=== PATIENT | male | born 1965 | race Caucasian/White ===

== ENCOUNTER 2017-04-12 01:08 | Emergency (ER) | payer SELFPAY ==
[~2017-04-12] VITALS: Ht 172.7 cm; Wt 61.4 kg
[~2017-04-12 01:08] MED LIST: MUSCLE RELAXER PO
[2017-04-12 01:18] VITALS: BP 147/90; PULSE 114; RESP 32; TEMP 97.9; O2SAT 95
[2017-04-12] MEDS ORDERED: methylPREDNISolone SOD SUCC 125 MG/2 ML VIAL IV PUSH ONE (01:45)
[2017-04-12] MEDS ORDERED: SODIUM CHLORIDE 0.9% FLUSH 10 ML FLUSH IVF PRN (01:45)
[2017-04-12] MEDS: RESP: ALBUTEROL 2.5 MG/IPRATROPIUM 0.5 MG NEB (SCH) INH ×3 (01:48→02:12)
[2017-04-12 01:50] VITALS: BP 118/65; PULSE 111; RESP 25; O2SAT 93
[2017-04-12 02:17] LABS: BLOOD GAS BASE EXCESS -0.9 mmol/L (-2-2); BLOOD GAS HCO3 23 mmol/L (22-26); BLOOD GAS METHEMOGLOBIN 1.1 % (0-2); BLOOD GAS O2 HGB SATURATION 80 % (90-100); BLOOD GAS PCO2 35 mmHG (38-42); BLOOD GAS PO2 62 mmHG (61-120); BLOOD GAS TOTAL HGB 16.1 G/DL (12.0-16.0); TEMP CORR TO 98.6
[2017-04-12 02:18] LABS: CRITICAL VALUE YES; DRAW SITE RT RADIAL; FIO2 21 %; NUMBER OF ARTERIAL PUNCTURES 1; OXYGEN DEVICE ROOM AIR; STAT YES; ULNAR PULSE PRESENT
[2017-04-12 02:21] LABS: AUTOMATED NEUTROPHIL # 3.9 TH/MM3 (1.8-7.7); BASOPHIL # 0.1 TH/MM3 (0-0.2); BASOPHIL % 0.8 % (0.0-2.0); EOSINOPHIL # 0.1 TH/MM3 (0-0.4); EOSINOPHIL % 1.1 % (0.0-4.0); HEMATOCRIT 50.1 % (39.0-51.0); HEMO FLAGS DIFF FINAL; LYMPH % 35.8 % (9.0-44.0); LYMPHOCYTE # 2.8 TH/MM3 (1.0-4.8); MEAN CELL VOLUME 100.5 FL (80.0-100.0); MEAN CORPUSCULAR HEMOGLOBIN 33.8 PG (27.0-34.0); MEAN CORPUSCULAR HGB CONC 33.7 % (32.0-36.0); MONO % 13.1 % (0.0-8.0); NEUT % 49.2 % (16.0-70.0); PLATELET COUNT 189 TH/MM3 (150-450); RED BLOOD COUNT 4.99 MIL/MM3 (4.50-5.90); RED CELL DISTRIBUTION WIDTH 14.6 % (11.6-17.2); WHITE BLOOD COUNT 7.9 TH/MM3 (4.0-11.0)
[2017-04-12 02:30] LABS: POTASSIUM 3.1 MEQ/L (3.5-5.1)
[2017-04-12 02:31] VITALS: BP 111/69; PULSE 109; RESP 32; O2SAT 93
[2017-04-12 02:33] LABS: BICARBONATE 22.7 MEQ/L (21.0-32.0)
--- NOTE | 2017-04-12 03:10 | PD ---
HPI Chief Complaint: Respiratory Symptoms Time Seen by Provider: 01:43 Travel History International Travel<30 days: No Contact w/Intl Traveler<30days: No Traveled to known affect area: No History of Present Illness HPI The patient is a 51-year-old male that has been short of breath for one week. He smokes one pack a day. He may also smoke cocaine. He denies any chest pain. He denies any fever. PFSH Past Medical History Cancer: No Cardiovascular Problems: No Endocrine: No Genitourinary: No Hypertension: Yes Immune Disorder: No Musculoskeletal: Yes Neurologic: No Psychiatric: No Reproductive: No Respiratory: No Immunizations Current: No Pneumonia: Yes (BRONCHIAL PNEUMONIA REQUIRING HOSPITALIZATION) Influenza Vaccination: Yes Past Surgical History Pacemaker: No Other Surgery: Yes (BRONCHOSCOPY: 08/03/13) Social History Alcohol Use: Yes (occasionally) Tobacco Use: Yes (1/2 ppd) Substance Use: Yes (WEED OCCASIONALLY) Allergies-Medications (Allergen,Severity, Reaction): Coded Allergies: No Known Allergies (Unverified Adverse Reaction, Unknown, 04/12/17) Reported Meds & Prescriptions Reported Meds & Active Scripts Active No Active Prescriptions or Reported Medications Review of Systems Except as stated in HPI: all other systems reviewed are Neg Physical Exam Narrative GENERAL: The patient is alert, oriented 3 and slight respiratory distress. His respiratory rate is 32 and oximetry 95% on room air with blood pressure 147/ 90 and heart rate 114 when he came in. SKIN: Focused skin assessment warm/dry. HEAD: Atraumatic. Normocephalic. EYES: Pupils equal and round. No scleral icterus. No injection or drainage. ENT: No nasal bleeding or discharge. Mucous membranes pink and moist. NECK: Trachea midline. No JVD. CARDIOVASCULAR: Regular rate and rhythm. No murmur appreciated. RESPIRATORY: No accessory muscle use. Breath sounds are diminished bilaterally. Breath sounds equal bilaterally. A few scattered rhonchi is present, particularly on the left. GASTROINTESTINAL: Abdomen soft, non-tender, nondistended. Hepatic and splenic margins not palpable. MUSCULOSKELETAL: No obvious deformities. No clubbing. No cyanosis. No edema. NEUROLOGICAL: Awake and alert. No obvious cranial nerve deficits. Motor grossly within normal limits. Normal speech. PSYCHIATRIC: Appropriate mood and affect; insight and judgment normal. Data Data Last Documented VS Vital Signs Date Time Temp Pulse Resp B/P (MAP) Pulse Ox O2 Delivery O2 Flow Rate FiO2 04/12/17 02:31 109 32 111/69 (83) 93 Nasal Cannula 4.00 04/12/17 01:18 97.9 Orders Orders Complete Blood Count With Diff (04/12/17 01:43) Basic Metabolic Panel (Bmp) (04/12/17 01:43) Arterial Blood Gas (Abg) (04/12/17 01:43) Iv Access Insert/Monitor (04/12/17 01:43) Ecg Monitoring (04/12/17 01:43) Oximetry (04/12/17 01:43) Oxygen Administration (04/12/17 01:43) Sodium Chloride 0.9% Flush (Ns Flush) (04/12/17 01:45) Methylprednisolone So Succ Inj (Solumedr (04/12/17 01:45) Albuterol-Ipratropium Neb (Duoneb Neb) (04/12/17 01:45) Chest, Pa & Lat (04/12/17 03:06) Urinalysis - C+S If Indicated (04/12/17 03:06) Drug Screen, Random Urine (04/12/17 03:06) Potassium Chloride (Kcl) (04/12/17 04:15) Ed Discharge Order (04/12/17 04:25) Labs Laboratory Tests Test 04/12/17 01:20 04/12/17 01:56 04/12/17 04:01 White Blood Count 7.9 TH/MM3 Red Blood Count 4.99 MIL/MM3 Hemoglobin 16.9 GM/DL Hematocrit 50.1 % Mean Corpuscular Volume 100.5 FL Mean Corpuscular Hemoglobin 33.8 PG Mean Corpuscular Hemoglobin Concent 33.7 % Red Cell Distribution Width 14.6 % Platelet Count 189 TH/MM3 Mean Platelet Volume 9.7 FL Neutrophils (%) (Auto) 49.2 % Lymphocytes (%) (Auto) 35.8 % Monocytes (%) (Auto) 13.1 % Eosinophils (%) (Auto) 1.1 % Basophils (%) (Auto) 0.8 % Neutrophils # (Auto) 3.9 TH/MM3 Lymphocytes # (Auto) 2.8 TH/MM3 Monocytes # (Auto) 1.0 TH/MM3 Eosinophils # (Auto) 0.1 TH/MM3 Basophils # (Auto) 0.1 TH/MM3 CBC Comment DIFF FINAL Differential Comment Blood Urea Nitrogen 3 MG/DL Creatinine 0.68 MG/DL Random Glucose 113 MG/DL Calcium Level 8.4 MG/DL Sodium Level 139 MEQ/L Potassium Level 3.1 MEQ/L Chloride Level 107 MEQ/L Carbon Dioxide Level 22.7 MEQ/L Anion Gap 9 MEQ/L Estimat Glomerular Filtration Rate 124 ML/MIN Blood Gas Puncture Site RT RADIAL Blood Gas Patient Temperature 98.6 Blood Gas HCO3 23 mmol/L Blood Gas Base Excess -0.9 mmol/L Blood Gas Oxygen Saturation 80 % Arterial Blood pH 7.43 Arterial Blood Partial Pressure CO2 35 mmHG Arterial Blood Partial Pressure O2 62 mmHG Arterial Blood Oxygen Content 18.0 Vol % Arterial Blood Carboxyhemoglobin 13.0 % Arterial Blood Methemoglobin 1.1 % Blood Gas Hemoglobin 16.1 G/DL Oxygen Delivery Device ROOM AIR Blood Gas Inspired Oxygen 21 % Urine Color YELLOW Urine Turbidity CLEAR Urine pH 6.0 Urine Specific [place] 1.020 Urine Protein TRACE mg/dL Urine Glucose (UA) NEG mg/dL Urine Ketones TRACE mg/dL Urine Occult Blood NEG Urine Nitrite NEG Urine Bilirubin NEG Urine Leukocyte Esterase NEG Urine Squamous Epithelial Cells 0-5 /hpf Urine Calcium Oxalate Crystals MOD /hpf Urine Mucus MOD /lpf Microscopic Urinalysis Comment CULT NOT INDICATED Urine Barbiturates Screen NEG Urine Amphetamines Screen NEG Urine Benzodiazepines Screen NEG Urine Cocaine Screen POS Urine Cannabinoids Screen POS MDM Medical Decision Making Medical Screen Exam Complete: Yes Emergency Medical Condition: Yes Medical Record Reviewed: Yes Interpretation(s) The blood gases on room air show pH 7.43, CO2 35, PO2 of 62 with O2 sat of 80 and carboxyhemoglobin level of 13. The EKG shows sinus tachycardia with a rate of [address] elevation or depression. The basic metabolic profile shows potassium 3.1 and calcium 8.4 but is otherwise unremarkable. The chest x- ray shows interstitial prominence bilaterally which is likely related to emphysema. No acute findings noted. The urine shows trace ketones, moderate calcium oxalate crystals and culture is not indicated. The CBC shows an MCV of 100.5 but is otherwise unremarkable. The basic metabolic profile shows potassium 3.1 and calcium 8.4 but is otherwise unremarkable. The toxicology is positive for cocaine and cannabinoids. Differential Diagnosis COPD with acute exacerbation, emphysema, tobacco abuse, hypoxemia, pneumonia, bronchitis, recreational drug abuse Narrative Course The patient appears to have emphysema. He is unlikely to quit smoking. He will be given an albuterol HFA, he does not have a nebulizer machine at home. His extremely high carboxyhemoglobin level may be related to both smoking and marijuana and cocaine use. Diagnosis Primary Impression: Emphysema Additional Impressions: Cocaine abuse Marijuana abuse Tobacco abuse Med/Other Pt SpecificInfo: Prescription(s) given Scripts Albuterol 8.5 GM Inh (Proair Hfa 8.5 GM Inh) 90 Mcg/Act Aer 2 PUFF INH Q4-6H Y for SHORTNESS OF BREATH, #1 INHALER 0 Refills 108 mcg/actuation Prov: Sushant Berg MD 04/12/17 Sushant Berg MD Apr 12, 2017 03:10
[2017-04-12 03:30] VITALS: BP 123/74; PULSE 102; RESP 20; O2SAT 97
[2017-04-12 04:13] LABS: BLOOD, URINE NEG (NEG); GLUCOSE,URINE NEG (NEG); KETONE, URINE TRACE mg/dL (NEG); NITRITE,URINE NEG (NEG)
[2017-04-12] MEDS ORDERED: POTASSIUM CHLORIDE 20 MEQ CONTROLLED RELEASE TAB PO ONE (04:15)
--- NOTE | 2017-04-12 04:20 | RADRPT ---
EXAM DATE/TIME: 04/12/2017 03:09 [facility] COMPARISON: CT THORAX W/O CONTRAST, July 29, 2013, 11:49. CHEST SINGLE AP, July 29, 2013, 8:44. INDICATIONS : Wheezing. MEDICAL HISTORY : Hypertension. 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 There is inters titial prominence bilaterally with likely linear scar in the left midlung zone. No effusion, consolid ation, or pneumothorax is identified. Bones and soft tissues demonstrate no acute finding. CONCLUSION: Interstitial prominence bilaterally which could be related to emphysema. Otherwise, no acute finding is identified. Raimundo Pandya MD on April 12, 2017 at 4:17 Board Certified Radiologist. This report was verified electronically.
[2017-04-12 04:23] LABS: URINE COLOR YELLOW (YELLW/STRAW)
[2017-04-12 04:24] LABS: CALCIUM OXALATE CRYSTALS,URINE MOD /hpf; COMMENT (UR) CULT NOT INDICATED; CULTURE IF INDICATED CULT NOT INDICATED; MUCUS URINE MOD /lpf (OCC); SQUAMOUS EPITHELIAL CELL URINE 0-5 /hpf (0-5)
[2017-04-12] MEDS ORDERED: ALBUAER3 INH (04:32)
[2017-04-12 04:37] VITALS: BP 118/66; PULSE 112; RESP 20; O2SAT 95
--- NOTE | 2017-04-12 22:18 | EKG ---
Date Performed: 04/12/2017 Time Performed: 01:26:23 PTAGE: 51 years EKG: SINUS TACHYCARDIA POSSIBLE RIGHT ATRIAL ENLARGEMENT NONSPECIFIC ST & T-WAVE ABNORMALITY ABN ORMAL RHYTHM ECG NO PREVIOUS TRACING DOCTOR: Jacob Luna Interpretating Date/Time 04/12/2017 22:17:49
== END 2017-04-12 04:48 | disposition home or self-care (01) ==
LOC: PHED 01:08
DX: J43.9 Emphysema, unspecified (principal); I10 Essential (primary) hypertension; R94.31 Abnormal electrocardiogram [ECG] [EKG]; F17.210 Nicotine dependence, cigarettes, uncomplicated; F14.10 Cocaine abuse, uncomplicated; F12.10 Cannabis abuse, uncomplicated
CPT/HCPCS: 36600; 71020; 80048; 80307; 81001; 82805; 85025; 93005; 94640; 94664; 96374; 99285; J2930

== ENCOUNTER 2017-09-20 16:13 | Emergency (ER) | payer SELFPAY ==
[~2017-09-20] VITALS: Ht 180.3 cm; Wt 68.0 kg
[~2017-09-20 16:13] MED LIST changes: +ALBUAER3 INH; -MUSCLE RELAXER PO
[2017-09-20 16:18] VITALS: BP 143/80; PULSE 99; RESP 18; TEMP 98.5; O2SAT 98
[2017-09-20] MEDS ORDERED: LIDOCAINE 1%/EPINEPHrine 1:100,000 SOLN 20 ML VIAL INFIL ONE (16:30)
[2017-09-20] MEDS ORDERED: CIPROFLOXACIN 500 MG TAB PO ONE (16:30)
[2017-09-20] MEDS ORDERED: TETANUS/DIPHTHERIA TOXOID ADULT 0.5 ML VIAL IM ONE (16:30)
--- NOTE | 2017-09-20 16:35 | PD ---
HPI . Laceration Chief Complaint: Laceration/Skin Injury Time Seen by Provider: 16:25 Travel History International Travel<30 days: No Contact w/Intl Traveler<30days: No Traveled to known affect area: No History of Present Illness HPI This patient presents for the treatment of a laceration to his right lower leg which was sustained more than 12 hours ago in an oyster bed. He states that he pulled a piece of oyster shell out of the wound. He is complaining with pain in the area which he rates 8/10. PFSH Past Medical History Cancer: No Cardiovascular Problems: No Endocrine: No Gastrointestinal Disorders: No Genitourinary: No Hypertension: Yes Immune Disorder: No Implanted Vascular Access Dvce: No Musculoskeletal: Yes Neurologic: No Psychiatric: No Reproductive: No Respiratory: No Immunizations Current: No Pneumonia: Yes (BRONCHIAL PNEUMONIA REQUIRING HOSPITALIZATION) Tetanus Vaccination: < 5 Years Past Surgical History Pacemaker: No Other Surgery: Yes (BRONCHOSCOPY: 08/03/13) Social History Alcohol Use: Yes (occasionally) Tobacco Use: Yes (1/2 ppd) Substance Use: Yes (WEED OCCASIONALLY) Allergies-Medications (Allergen,Severity, Reaction): Coded Allergies: No Known Allergies (Unverified Adverse Reaction, Unknown, 04/12/17) Reported Meds & Prescriptions Reported Meds & Active Scripts Active Cipro (Ciprofloxacin HCl) 500 Mg Tab 500 Mg PO BID 7 Days Proair Hfa 8.5 GM Inh (Albuterol Sulfate) 90 Mcg/Act Aer 2 Puff INH Q4-6H PRN 108 mcg/actuation Review of Systems Except as stated in HPI: all other systems reviewed are Neg Physical Exam Narrative GENERAL: Awake and alert and in no acute distress. SKIN: Warm and dry. He has a laceration on the medial aspect of the right lower leg just distal to the knee. It is about 2 cm long. He is distally neurovascularly intact. HEAD: Normocephalic/atraumatic. EYES: Pupils are equal. Extraocular movements are intact. NECK: Normal range of motion. CARDIOVASCULAR: Regular rate and rhythm. RESPIRATORY: Nonlabored respirations. MUSCULOSKELETAL: Atraumatic. NEUROLOGICAL: Nonfocal. PSYCHIATRIC: Appropriate mood and affect. Data Data Last Documented VS Vital Signs Date Time Temp Pulse Resp B/P (MAP) Pulse Ox O2 Delivery O2 Flow Rate FiO2 09/20/17 16:18 98.5 99 18 143/80 (101) 98 Orders Orders Lidocai-Epi 1%-1:100,000 Inj (Xylocaine- (09/20/17 16:30) Tetanus/Diphtheria Tox Adult (Tetanus/Di (09/20/17 16:30) Ciprofloxacin (Cipro) (09/20/17 16:30) MDM Medical Decision Making Medical Screen Exam Complete: Yes Emergency Medical Condition: Yes Differential Diagnosis Differential diagnosis includes but is not limited to skin laceration, muscular laceration, tendon laceration, neurovascular laceration. Narrative Course This patient presents with a laceration just below the right knee which was sustained over 12 hours ago secondary to an oyster shell. The wound will be copiously irrigated with normal saline. He will be discharged to home on prophylactic Cipro. Tetanus will be updated. Procedures Procedure Narrative LACERATION LOCATION: Right leg LENGTH: 3 cm PROCEDURE: The area of the laceration was prepped with Betadine. The laceration was infiltrated with 6 cc of 1% lidocaine with epi. The wound was copiously irrigated and explored without evidence of foreign body, tendon injury or neurovascular injury. A sterile dressing was applied. The patient was advised to keep the dressing clean and dry for 24 hours. Patient tolerated the procedure well. Diagnosis Primary Impression: Laceration of leg Qualified Codes: S81.811A - Laceration without foreign body, right lower leg, initial encounter Patient Instructions: General Instructions, Laceration Without Closure (ED) Additional Instructions: Remove the dressing tomorrow and start washing the wound twice daily with soap and water. Then apply an antibiotic ointment such as Neosporin. Cipro as directed to prevent infection. Follow-up if you develop any signs of infection such as pus, increased pain, redness. Med/Other Pt SpecificInfo: Prescription(s) given Scripts Nabumetone (Nabumetone) 500 Mg Tab 500 MG PO BID for Pain-Inflammation, #14 TAB 0 Refills Prov: Polina Melendrez MD 09/20/17 Ciprofloxacin (Cipro) 500 Mg Tab 500 MG PO BID for Infection for 7 Days, #14 TAB 0 Refills Prov: Polina Melendrez MD 09/20/17 Disposition: 01 DISCHARGE HOME Condition: Stable Polina Melendrez MD September 20, 2017 16:34
[2017-09-20] MEDS ORDERED: CIPR-9 PO (16:36)
[2017-09-20] MEDS ORDERED: NABU1TAB37 PO (16:51)
== END 2017-09-20 17:02 | disposition home or self-care (01) ==
LOC: NEPD 16:13
DX: S81.811A Laceration without foreign body, right lower leg, initial encounter (principal); I10 Essential (primary) hypertension; F17.200 Nicotine dependence, unspecified, uncomplicated; Z23 Encounter for immunization; Z87.39 Personal history of other diseases of the musculoskeletal system and connective tissue; Z87.09 Personal history of other diseases of the respiratory system; W45.8XXA Other foreign body or object entering through skin, initial encounter
CPT/HCPCS: 12002; 90471; 90714

== ENCOUNTER 2017-10-24 02:19 | Emergency (ER) | payer SELFPAY ==
[~2017-10-24] VITALS: Ht 172.7 cm; Wt 58.5 kg
[~2017-10-24 02:19] MED LIST changes: +CIPR-9 PO; +NABU1TAB37 PO
[2017-10-24 02:40] VITALS: BP 136/89; PULSE 85; RESP 18; TEMP 98.2; O2SAT 94
--- NOTE | 2017-10-24 03:26 | PD ---
HPI Chief Complaint: Anxiety Time Seen by Provider: 03:00 Travel History International Travel<30 days: No Contact w/Intl Traveler<30days: No Traveled to known affect area: No History of Present Illness HPI Patient is a 52 year old male who comes into the ED because he says he is depressed and he just can't do it anymore. He admits to crack, heroine, and alcohol use. He says he has lost everything and he does not want to live any more. He says he has pain to his right leg from an oyster shell for about 2 months. He denies any other medical complaints. PFSH Past Medical History Asthma: Yes Cancer: No Cardiovascular Problems: No Endocrine: No Gastrointestinal Disorders: No Genitourinary: No Hypertension: Yes Immune Disorder: No Implanted Vascular Access Dvce: No Musculoskeletal: Yes Neurologic: No Psychiatric: No Reproductive: No Respiratory: No Immunizations Current: No Pneumonia: Yes (BRONCHIAL PNEUMONIA REQUIRING HOSPITALIZATION) Past Surgical History Pacemaker: No Other Surgery: Yes (BRONCHOSCOPY: 08/03/13) Social History Alcohol Use: Yes (occasionally) Tobacco Use: Yes (1/2 ppd) Substance Use: Yes (WEED, COCAINE AND HEROIN TONITE) Allergies-Medications (Allergen,Severity, Reaction): Coded Allergies: No Known Allergies (Unverified Adverse Reaction, Unknown, 04/12/17) Reported Meds & Prescriptions Reported Meds & Active Scripts Active Review of Systems Except as stated in HPI: all other systems reviewed are Neg General / Constitutional: No: Fever, Chills HENT: No: Headaches, Lightheadedness Cardiovascular: No: Chest Pain or Discomfort Respiratory: No: Shortness of Breath Gastrointestinal: No: Nausea, Vomiting Musculoskeletal: Positive: Pain Skin: Positive Lesions Neurologic: No: Weakness, Dizziness Psychiatric: Positive: Depression Physical Exam Narrative GENERAL: Awake and alert, in no acute distress. SKIN: Focused skin assessment warm/dry. Healing wound to right vega, no evidence of infection. HEAD: Atraumatic. Normocephalic. EYES: Pupils equal and round. No scleral icterus. ENT: Mucous membranes pink and moist. NECK: Trachea midline. No JVD. CARDIOVASCULAR: Regular rate and rhythm. No murmur appreciated. RESPIRATORY: No accessory muscle use. Clear to auscultation. Breath sounds equal bilaterally. GASTROINTESTINAL: Abdomen soft, non-tender, nondistended. MUSCULOSKELETAL: No obvious deformities. No clubbing. No cyanosis. No edema. NEUROLOGICAL: Awake and alert. No obvious cranial nerve deficits. Motor grossly within normal limits. Normal speech. PSYCHIATRIC: Appropriate mood and affect; insight and judgment normal. Data Data Last Documented VS Vital Signs Date Time Temp Pulse Resp B/P (MAP) Pulse Ox O2 Delivery O2 Flow Rate FiO2 10/24/17 02:40 98.2 85 18 136/89 (105) 94 Orders Orders Complete Blood Count With Diff (10/24/17 03:04) Comprehensive Metabolic Panel (10/24/17 03:04) Thyroid Stimulating Hormone (10/24/17 03:04) Psych Screen (10/24/17 03:04) Drug Screen, Random Urine (10/24/17 03:04) Alcohol (Ethanol) (10/24/17 03:04) Salicylates (Aspirin) (10/24/17 03:04) Tylenol (Acetaminophen) (10/24/17 03:04) MDM Medical Decision Making Medical Screen Exam Complete: Yes Emergency Medical Condition: Yes Medical Record Reviewed: Yes Differential Diagnosis intoxication vs drug abuse vs depression Narrative Course Patient is a 52 year old male who comes in because he says he can't do it anymore. He does admit to using several substances tonight. Exam shows no acute abnormalities. I went to the computer to enter orders on the patient and he walked out of the ED. I did not see him trying to leave. We attempted to locate him, but were unable to. Patient left before any treatment or testing could be performed. Diagnosis Primary Impression: AMA Patient Instructions: General Instructions Departure Forms: Tests/Procedures Disposition: 07 AGAINST MEDICAL ADVICE Condition: Stable Jessica Davis MD Oct 24, 2017 03:26
== END 2017-10-24 03:25 | disposition left against medical advice (07) ==
LOC: PHED 02:19
DX: F32.9 Major depressive disorder, single episode, unspecified (principal); F12.90 Cannabis use, unspecified, uncomplicated; F14.90 Cocaine use, unspecified, uncomplicated; F11.90 Opioid use, unspecified, uncomplicated; J45.909 Unspecified asthma, uncomplicated; I10 Essential (primary) hypertension; F17.200 Nicotine dependence, unspecified, uncomplicated
CPT/HCPCS: 99281

== ENCOUNTER 2017-10-24 03:36 | Emergency (ER) | payer SELFPAY ==
[2017-10-24 03:38] VITALS: BP 161/92; PULSE 81; RESP 16; TEMP 98.1; O2SAT 98
--- NOTE | 2017-10-24 04:03 | PD ---
HPI Chief Complaint: Psychiatric Symptoms Time Seen by Provider: 04:01 Travel History International Travel<30 days: No Contact w/Intl Traveler<30days: No Traveled to known affect area: No History of Present Illness HPI 52-year-old male presents voluntarily requesting psychiatric evaluation. He reports that for 1 week he has been feeling depressed and having suicidal thoughts. Specifically he reports that he has had thoughts of "gasping" himself in his car. He reports that he recently "lost everything" and he has been using drugs including alcohol, marijuana, heroin and cocaine. Symptoms are moderate, aggravated by loss of financial resources, drug or alcohol use. No relieving factors. Symptom onset 1 week ago. No other complaints at this time. PFSH Past Medical History Asthma: Yes Cardiovascular Problems: No Diminished Hearing: No Endocrine: No Gastrointestinal Disorders: No Genitourinary: No Hypertension: Yes Immune Disorder: No Implanted Vascular Access Dvce: No Musculoskeletal: Yes Neurologic: No Psychiatric: No Reproductive: No Respiratory: No Immunizations Current: No Pneumonia: Yes (BRONCHIAL PNEUMONIA REQUIRING HOSPITALIZATION) ?: Not Past Surgical History Pacemaker: No Other Surgery: Yes (BRONCHOSCOPY: 08/03/13) Social History Alcohol Use: Yes (DAILY ) Tobacco Use: Yes (1/2 ppd) Substance Use: Yes (WEED, COCAINE AND HEROIN EVERYDAY ) Allergies-Medications (Allergen,Severity, Reaction): Coded Allergies: No Known Allergies (Unverified Adverse Reaction, Unknown, 04/12/17) Reported Meds & Prescriptions Reported Meds & Active Scripts Active Review of Systems Except as stated in HPI: all other systems reviewed are Neg Physical Exam Narrative GENERAL: Well-nourished male in no acute distress SKIN: Warm and dry. HEAD: Atraumatic. Normocephalic. EYES: Pupils equal and round. No scleral icterus. No injection or drainage. ENT: No nasal bleeding or discharge. Mucous membranes pink and moist. NECK: Trachea midline. No JVD. CARDIOVASCULAR: Regular rate and rhythm. No murmur appreciated. RESPIRATORY: No accessory muscle use. Clear to auscultation. Breath sounds equal bilaterally. GASTROINTESTINAL: Abdomen soft, non-tender, nondistended. Hepatic and splenic margins not palpable. MUSCULOSKELETAL: No obvious deformities. No clubbing. No cyanosis. No edema. NEUROLOGICAL: Awake and alert. No obvious cranial nerve deficits. Motor grossly within normal limits. Normal speech. PSYCHIATRIC: Appropriate mood and affect; insight and judgment normal. Data Data Last Documented VS Vital Signs Date Time Temp Pulse Resp B/P (MAP) Pulse Ox O2 Delivery O2 Flow Rate FiO2 10/24/17 03:38 98.1 81 16 161/92 (115) 98 Orders Orders Complete Blood Count With Diff (10/24/17 04:01) Comprehensive Metabolic Panel (10/24/17 04:01) Thyroid Stimulating Hormone (10/24/17 04:01) Psych Screen (10/24/17 04:01) Drug Screen, Random Urine (10/24/17 04:01) Alcohol (Ethanol) (10/24/17 04:01) Labs Laboratory Tests Test 10/24/17 04:10 10/24/17 04:25 White Blood Count 8.0 TH/MM3 Red Blood Count 4.59 MIL/MM3 Hemoglobin 15.8 GM/DL Hematocrit 45.6 % Mean Corpuscular Volume 99.3 FL Mean Corpuscular Hemoglobin 34.5 PG Mean Corpuscular Hemoglobin Concent 34.7 % Red Cell Distribution Width 13.7 % Platelet Count 154 TH/MM3 Mean Platelet Volume 10.1 FL Neutrophils (%) (Auto) 51.1 % Lymphocytes (%) (Auto) 31.8 % Monocytes (%) (Auto) 14.0 % Eosinophils (%) (Auto) 2.4 % Basophils (%) (Auto) 0.7 % Neutrophils # (Auto) 4.1 TH/MM3 Lymphocytes # (Auto) 2.5 TH/MM3 Monocytes # (Auto) 1.1 TH/MM3 Eosinophils # (Auto) 0.2 TH/MM3 Basophils # (Auto) 0.1 TH/MM3 CBC Comment DIFF FINAL Differential Comment Blood Urea Nitrogen 4 MG/DL Creatinine 0.62 MG/DL Random Glucose 85 MG/DL Total Protein 7.9 GM/DL Albumin 3.1 GM/DL Calcium Level 8.1 MG/DL Alkaline Phosphatase 84 U/L Aspartate Amino Transf (AST/SGOT) 84 U/L Alanine Aminotransferase (ALT/SGPT) 62 U/L Total Bilirubin 0.2 MG/DL Sodium Level 140 MEQ/L Potassium Level 3.5 MEQ/L Chloride Level 107 MEQ/L Carbon Dioxide Level 22.5 MEQ/L Anion Gap 11 MEQ/L Estimat Glomerular Filtration Rate 137 ML/MIN Thyroid Stimulating Hormone 3rd Gen 1.740 uIU/ML Ethyl Alcohol Level 83 MG/DL Urine Opiates Screen NEG Urine Barbiturates Screen NEG Urine Amphetamines Screen NEG Urine Benzodiazepines Screen NEG Urine Cocaine Screen POS Urine Cannabinoids Screen POS MDM Medical Decision Making Medical Screen Exam Complete: Yes Emergency Medical Condition: Yes Medical Record Reviewed: Yes Differential Diagnosis Substance-induced mood disorder, acute psychosis, major depressive disorder, adjustment reaction Narrative Course Mental health screening discussed with the patient. Psychiatric screen ordered. Labs reviewed, notable for an alcohol level of 83 and the drug screen positive for cocaine and cannabinoids. The patient is medically cleared. Diagnosis Primary Impression: Polysubstance abuse Jason Tellez Oct 24, 2017 04:03
[2017-10-24 04:27] LABS: AUTOMATED NEUTROPHIL # 4.1 TH/MM3 (1.8-7.7); BASOPHIL # 0.1 TH/MM3 (0-0.2); BASOPHIL % 0.7 % (0.0-2.0); EOSINOPHIL # 0.2 TH/MM3 (0-0.4); EOSINOPHIL % 2.4 % (0.0-4.0); HEMATOCRIT 45.6 % (39.0-51.0); HEMOGLOBIN 15.8 GM/DL (13.0-17.0); LYMPH % 31.8 % (9.0-44.0); LYMPHOCYTE # 2.5 TH/MM3 (1.0-4.8); MEAN CELL VOLUME 99.3 FL (80.0-100.0); MEAN CORPUSCULAR HEMOGLOBIN 34.5 PG (27.0-34.0); MEAN CORPUSCULAR HGB CONC 34.7 % (32.0-36.0); MEAN PLATELET VOLUME 10.1 FL (7.0-11.0); MONOCYTE # 1.1 TH/MM3 (0-0.9); NEUT % 51.1 % (16.0-70.0); PLATELET COUNT 154 TH/MM3 (150-450); RED BLOOD COUNT 4.59 MIL/MM3 (4.50-5.90); RED CELL DISTRIBUTION WIDTH 13.7 % (11.6-17.2)
[2017-10-24 04:34] LABS: ALBUMIN 3.1 GM/DL (3.4-5.0); ALT (GPT) 62 U/L (12-78); AST (GOT) 84 U/L (15-37); BICARBONATE 22.5 MEQ/L (21.0-32.0); BLOOD UREA NITROGEN 4 MG/DL (7-18); CALCIUM 8.1 MG/DL (8.5-10.1); CHLORIDE 107 MEQ/L (98-107); CREATININE 0.62 MG/DL (0.60-1.30); GLOMERULAR FILTRATION RATE 137 ML/MIN (>89); GLUCOSE,RANDOM 85 MG/DL (74-106); SODIUM (NA) 140 MEQ/L (136-145)
[2017-10-24 04:42] LABS: ALKALINE PHOSPHATASE 84 U/L (45-117); TOTAL BILIRUBIN ADULT 0.2 MG/DL (0.2-1.0); TOTAL PROTEIN 7.9 GM/DL (6.4-8.2)
--- NOTE | 2017-10-24 16:57 | PD ---
History of Present Illness Chief Complaint: Psychiatric Symptoms Time Seen by Provider: 14:55 Travel History International Travel<30 Days: No Contact w/Intl Traveler<30days: No Known affected area: No Legal Status Legal Status: Voluntary History of Present Illness: This is a homeless, 52-year-old single, male who presents voluntarily to this facility reporting depression and suicidal ideation. He has not previously been seen at this facility for psychiatric care. Reviewed electronic medical record, labs, discuss case with staff. Patient's toxicology is positive for cocaine and cannabinoids. Patient was examined in his room and J pod. He is quite disheveled and dirty and wearing hospital pajamas. Upon examination, the patient is found resting quietly and reports that he is feeling "much better". He denies suicidal ideation, homicidal ideation, auditory or visual hallucinations. He states that he "was doing drugs and got a little stupid". He denies a previous history of inpatient admissions or mental health diagnoses. His speech is clear, logical, and organized. He is alert and oriented 4. There is no apparent internal stimulation nor indication of thought blocking. I can elicit no delusional material nor does he appear to be manic. He does not appear to be in any distress at this time and maintains appropriate eye contact throughout the interview. PFSH Past Medical History Asthma: Yes Cardiovascular Problems: No Diminished Hearing: No Endocrine: No Gastrointestinal Disorders: No Genitourinary: No Hypertension: Yes Immune Disorder: No Implanted Vascular Access Dvce: No Musculoskeletal: Yes Neurologic: No Psychiatric: No Reproductive: No Respiratory: No Immunizations Current: No Pneumonia: Yes (BRONCHIAL PNEUMONIA REQUIRING HOSPITALIZATION) ?: Not Past Surgical History Pacemaker: No Other Surgery: Yes (BRONCHOSCOPY: 08/03/13) Psychiatric History Psychiatric History Denies History of Inpatient Treatment: No Guns or firearms in home: No Social History Patient reports being homeless and admits to polysubstance abuse. Hx Alcohol Use: Yes (DAILY ) Hx Tobacco Use: Yes (1/2 ppd) Hx Substance Use: Yes Substance Use Type: Alcohol, Marijuana, Cocaine Hx of Substance Use Treatment: No Allergies-Medications (Allergen,Severity, Reaction): Coded Allergies: No Known Allergies (Unverified Adverse Reaction, Unknown, 04/12/17) Reported Meds & Prescriptions Reported Meds & Active Scripts Active Review of Systems Except as stated in HPI: all other systems reviewed are Neg Mental Status Examination Appearance: Dirty, Disheveled, Malodorous Consciousness: Alert Orientation: x4 Motor Activity: Normal gait Speech: Unremarkable Language: Adequate Fund of Knowledge: Adequate Attention and Concentration: Adequate Memory: Unremarkable Mood: Appropriate, Good Affect: Appropriate, Euthymic Thought Process & Associations: Intact Thought Content: Appropriate Hallucination Type: None Delusion Type: None Suicidal Ideation: No Suicidal Plan: No Suicidal Intention: No Homicidal Ideation: No Homicidal Plan: No Homicidal Intention: No Insight: Fair Judgment: Impulsive MDM Medical Decision Making Medical Record Reviewed: Yes Assessment/Plan This is a homeless, 52-year-old single, male who presents voluntarily to this facility reporting depression and suicidal ideation. He has not previously been seen at this facility for psychiatric care. Reviewed electronic medical record, labs, discuss case with staff. Patient's toxicology is positive for cocaine and cannabinoids. Patient was examined in his room and J pod. He is quite disheveled and dirty and wearing hospital pajamas. Upon examination, the patient is found resting quietly and reports that he is feeling "much better". He denies suicidal ideation, homicidal ideation, auditory or visual hallucinations. He states that he "was doing drugs and got a little stupid". He denies a previous history of inpatient admissions or mental health diagnoses. His speech is clear, logical, and organized. He is alert and oriented 4. There is no apparent internal stimulation nor indication of thought blocking. I can elicit no delusional material nor does he appear to be manic. He does not appear to be in any distress at this time and maintains appropriate eye contact throughout the interview. Given the patient's demeanor, and his reporting that his mood disorder was in relation to his polysubstance abuse, he does not meet inpatient admission criteria. He will be discharged with instructions to avoid polysubstance use as well as information on [facility] outpatient services. And advised to return to this facility should his condition worsen. Orders Orders Complete Blood Count With Diff (10/24/17 04:01) Comprehensive Metabolic Panel (10/24/17 04:01) Thyroid Stimulating Hormone (10/24/17 04:01) Psych Screen (10/24/17 04:01) Drug Screen, Random Urine (10/24/17 04:01) Alcohol (Ethanol) (10/24/17 04:01) Diet Regular Basic (10/24/17 Breakfast) Diet Regular Basic (10/24/17 Dinner) Results Vital Signs Date Time Temp Pulse Resp B/P (MAP) Pulse Ox O2 Delivery O2 Flow Rate FiO2 10/24/17 03:38 98.1 81 16 161/92 (115) 98 Laboratory Tests Test 10/24/17 04:10 10/24/17 04:25 White Blood Count 8.0 Red Blood Count 4.59 Hemoglobin 15.8 Hematocrit 45.6 Mean Corpuscular Volume 99.3 Mean Corpuscular Hemoglobin 34.5 Mean Corpuscular Hemoglobin Concent 34.7 Red Cell Distribution Width 13.7 Platelet Count 154 Mean Platelet Volume 10.1 Neutrophils (%) (Auto) 51.1 Lymphocytes (%) (Auto) 31.8 Monocytes (%) (Auto) 14.0 Eosinophils (%) (Auto) 2.4 Basophils (%) (Auto) 0.7 Neutrophils # (Auto) 4.1 Lymphocytes # (Auto) 2.5 Monocytes # (Auto) 1.1 Eosinophils # (Auto) 0.2 Basophils # (Auto) 0.1 CBC Comment DIFF FINAL Differential Comment Blood Urea Nitrogen 4 Creatinine 0.62 Random Glucose 85 Total Protein 7.9 Albumin 3.1 Calcium Level 8.1 Alkaline Phosphatase 84 Aspartate Amino Transf (AST/SGOT) 84 Alanine Aminotransferase (ALT/SGPT) 62 Total Bilirubin 0.2 Sodium Level 140 Potassium Level 3.5 Chloride Level 107 Carbon Dioxide Level 22.5 Anion Gap 11 Estimat Glomerular Filtration Rate 137 Thyroid Stimulating Hormone 3rd Gen 1.740 Ethyl Alcohol Level 83 Urine Opiates Screen NEG Urine Barbiturates Screen NEG Urine Amphetamines Screen NEG Urine Benzodiazepines Screen NEG Urine Cocaine Screen POS Urine Cannabinoids Screen POS Diagnosis Primary Impression: Cocaine-induced mood disorder Additional Impression: Polysubstance abuse Psychiatrically Cleared: Yes Problem Qualifiers Sherrie Dsouza Oct 24, 2017 16:57
--- NOTE | 2017-10-24 18:31 | PD ---
Physical Exam Date Seen by Provider: Oct 24, 2017 Time Seen by Provider: 18:29 Narrative For full history and physical examination please see previous providers notes. Data Data Last Documented VS Vital Signs Date Time Temp Pulse Resp B/P (MAP) Pulse Ox O2 Delivery O2 Flow Rate FiO2 10/24/17 03:38 98.1 81 16 161/92 (115) 98 Orders Orders Complete Blood Count With Diff (10/24/17 04:01) Comprehensive Metabolic Panel (10/24/17 04:01) Thyroid Stimulating Hormone (10/24/17 04:01) Psych Screen (10/24/17 04:01) Drug Screen, Random Urine (10/24/17 04:01) Alcohol (Ethanol) (10/24/17 04:01) Diet Regular Basic (10/24/17 Breakfast) Diet Regular Basic (10/24/17 Dinner) Ed Discharge Order (10/24/17 18:29) Labs Laboratory Tests Test 10/24/17 04:10 10/24/17 04:25 White Blood Count 8.0 TH/MM3 Red Blood Count 4.59 MIL/MM3 Hemoglobin 15.8 GM/DL Hematocrit 45.6 % Mean Corpuscular Volume 99.3 FL Mean Corpuscular Hemoglobin 34.5 PG Mean Corpuscular Hemoglobin Concent 34.7 % Red Cell Distribution Width 13.7 % Platelet Count 154 TH/MM3 Mean Platelet Volume 10.1 FL Neutrophils (%) (Auto) 51.1 % Lymphocytes (%) (Auto) 31.8 % Monocytes (%) (Auto) 14.0 % Eosinophils (%) (Auto) 2.4 % Basophils (%) (Auto) 0.7 % Neutrophils # (Auto) 4.1 TH/MM3 Lymphocytes # (Auto) 2.5 TH/MM3 Monocytes # (Auto) 1.1 TH/MM3 Eosinophils # (Auto) 0.2 TH/MM3 Basophils # (Auto) 0.1 TH/MM3 CBC Comment DIFF FINAL Differential Comment Blood Urea Nitrogen 4 MG/DL Creatinine 0.62 MG/DL Random Glucose 85 MG/DL Total Protein 7.9 GM/DL Albumin 3.1 GM/DL Calcium Level 8.1 MG/DL Alkaline Phosphatase 84 U/L Aspartate Amino Transf (AST/SGOT) 84 U/L Alanine Aminotransferase (ALT/SGPT) 62 U/L Total Bilirubin 0.2 MG/DL Sodium Level 140 MEQ/L Potassium Level 3.5 MEQ/L Chloride Level 107 MEQ/L Carbon Dioxide Level 22.5 MEQ/L Anion Gap 11 MEQ/L Estimat Glomerular Filtration Rate 137 ML/MIN Thyroid Stimulating Hormone 3rd Gen 1.740 uIU/ML Ethyl Alcohol Level 83 MG/DL Urine Opiates Screen NEG Urine Barbiturates Screen NEG Urine Amphetamines Screen NEG Urine Benzodiazepines Screen NEG Urine Cocaine Screen POS Urine Cannabinoids Screen POS MDM Medical Record Reviewed: Yes Supervised Visit with [facility]: No Narrative Course Patient is a 52-year-old male that [facility] voluntarily for psychiatric evaluation. Patient was seen and evaluated emergency department , he was medically cleared. Patient was seen evaluated by psychiatry nurse practitioner, he was medically cleared. Patient will be discharged home, he can follow-up with [facility]. Patient was encouraged to avoid substance abuse. Patient stable for discharge. Diagnosis Primary Impression: Cocaine-induced mood disorder Additional Impression: Polysubstance abuse Referrals: [facility] Patient Instructions: General Instructions, Polysubstance Abuse (ED) Additional Instruction: Follow-up at [facility] Follow-up with a primary doctor Avoid substance abuse Return to emergency department for any new worsening symptoms Med/Other Pt SpecificInfo: No Change to Meds Disposition: 01 DISCHARGE HOME Condition: Stable Johana Maldonado Oct 24, 2017 18:31
[2017-10-24 18:46] VITALS: BP 132/85; PULSE 79; RESP 18; TEMP 98.7; O2SAT 98
== END 2017-10-24 19:30 | disposition home or self-care (01) ==
LOC: NEPD 03:36 → NEPJ 19:30
DX: F15.94 Other stimulant use, unspecified with stimulant-induced mood disorder (principal); F14.94 Cocaine use, unspecified with cocaine-induced mood disorder; F19.10 Other psychoactive substance abuse, uncomplicated; J45.909 Unspecified asthma, uncomplicated; I10 Essential (primary) hypertension; F17.200 Nicotine dependence, unspecified, uncomplicated; Z59.0 Homelessness
CPT/HCPCS: 80053; 80307; 84443; 85025; 99283